=== PATIENT | female | born 1990 | race Caucasian/White ===

== ENCOUNTER 2017-12-07 16:53 | Emergency (ER) | payer OTHER ==
[2017-12-07 16:53] VITALS: BMI 19.5
[2017-12-07 17:03] VITALS: BP 104/72; PULSE 86; RESP 18; TEMP 98.3; O2SAT 98
--- NOTE | 2017-12-07 17:34 | ED PDOC ---
Lower Extremity Pain/Injury Time Seen by Provider: 12/07/17 17:07 Chief Complaint (Nursing): Lower Extremity Problem/Injury Chief Complaint (Provider): left foot and ankle injury History Per: Patient History/Exam Limitations: no limitations Onset/Duration Of Symptoms: Days (x1) Current Symptoms Are (Timing): Still Present Additional Complaint(s): 27 y/o female presents to the ED with a left foot and ankle pain s/p [place] [employer] [place]. Patient did not sustain head injury or loss of consciousness. She is having pain when trying to weight-bear. Patient took a muscle relaxer last night which did help the pain but she does not know the name of the medication. No medical attention sought yesterday after injury was sustained. PMD: none provided Past Medical History Reviewed: Historical Data, Nursing Documentation, Vital Signs Vital Signs: Last Vital Signs Temp 98.3 F 12/07/17 16:59 Pulse 86 12/07/17 16:59 Resp 18 12/07/17 16:59 BP 104/72 12/07/17 16:59 Pulse Ox 98 12/07/17 16:59 - Medical History PMH: No Chronic Diseases - Surgical History Surgical History: No Surg Hx - Family History Family History: States: No Known Family Hx - Living Arrangements Living Arrangements: With Family - Social History Current smoker - smoking cessation education provided: No Ex-Smoker (has not smoked in the last 12 months): No Alcohol: None Drugs: Denies - Home Medications Home Medications: Ambulatory Orders Medication Instructions Recorded Ibuprofen [Motrin Tab] 800 mg PO Q8 PRN #20 tab 12/07/17 - Allergies Allergies/Adverse Reactions: Allergies Allergy/AdvReac Type Severity Reaction Status Date / Time No Known Allergies Allergy Verified 12/07/17 16:59 Review of Systems ROS Statement: Except As Marked, All Systems Reviewed And Found Negative Musculoskeletal: Positive for: Foot Pain (left foot and ankle injury) Physical Exam - Reviewed Nursing Documentation Reviewed: Yes Vital Signs Reviewed: Yes - Physical Exam Appears: Positive for: Well, Non-toxic, No Acute Distress Skin: Positive for: Normal Color. Negative for: Rash Eye Exam: Positive for: Normal appearance Extremity: Positive for: Other (swelling and tenderness to the left lateral maleollus and dorsolateral aspect of left foot, normal distal sensation) Neurologic/Psych: Positive for: Alert, Oriented (x3) - Laboratory Results Urine POC: Negative - ECG O2 Sat by Pulse Oximetry: 98 (RA) Pulse Ox Interpretation: Normal - Other Rad Left foot and ankle x-ray X-Ray: Interpreted by Me, Viewed By Me X-Ray Interpretation: no fx, no dis Medical Decision Making Medical Decision Making: Time: 16:59 Impression: 27 y/o female with left foot and ankle injury Initial Plan: * Test * Motrin 600 mg PO * Left foot and ankle x-ray Patient aware of x-ray results, all questions answered. Patient was given crutches. Prescription for Motrin. See procedure note. Patient was referred to podiatry clinic for follow-up. Scribe Attestation: Documented by Jay Walter acting as a scribe Dottie Mcadams PA-C. Scribe Attestation: All medical record entries made by the Scribe were at my direction and personally dictated by me. I have reviewed the chart and agree that the record accurately reflects my personal performance of the history, physical exam, medical decision making, and the department course for this patient. I have also personally directed, reviewed, and agree with the discharge instructions and disposition. Procedures - Splinting Location: left foot Pre-Made Type: boris wrap, aircast Pre-Proc Neuro Vasc Exam: normal Post-Proc Neuro Vasc Exam: normal Disposition - Clinical Impression Clinical Impression: Ankle sprain - Patient ED Disposition Is Patient to be Admitted: No Counseled Patient/Family Regarding: Studies Performed, Diagnosis, Need For Followup, Rx Given - Disposition Referrals: Podiatry Clinic [Outside] Disposition: Routine/Home Disposition Time: 18:02 Condition: STABLE Additional Instructions: Ice, rest and elevate affected area. Take prescription meds as directed as needed for pain. Follow-up with podiatry clinic for any persistent symptoms. Prescriptions: Ibuprofen [Motrin Tab] 800 mg PO Q8 PRN #20 tab PRN Reason: Pain, Moderate (4-7) Instructions: Ankle Sprain (DC) Forms: [facility] (Urdu)
[2017-12-07] MEDS ORDERED: Povidone Iodine Topical 10% Sol ONE (17:42)
--- NOTE | 2017-12-07 17:59 | RAD ---
PROCEDURE: Left Ankle Radiographs. HISTORY: trauma COMPARISON: None FINDINGS: BONES: Bone alignment and mineralization are normal. There is no acute displaced fracture or bone destruction. JOINTS: Normal. Ankle mortise maintained. Talar dome intact SOFT TISSUES: Normal. OTHER FINDINGS: None. IMPRESSION: No acute fracture or dislocation.
--- NOTE | 2017-12-07 18:00 | RAD ---
PROCEDURE: Left Foot Radiographs. HISTORY: trauma COMPARISON: None. FINDINGS: BONES: Bone alignment and mineralization are normal. There is no acute displaced fracture or bone destruction. JOINTS: Normal. SOFT TISSUES: Normal. OTHER FINDINGS: None. IMPRESSION: No acute fracture or dislocation.
== END 2017-12-07 18:25 | disposition home or self-care (01) ==
LOC: H.ER 16:53
DX: S93.402A Sprain of unspecified ligament of left ankle, initial encounter (principal); X50.9XXA Other and unspecified overexertion or strenuous movements or postures, initial encounter; Y92.89 Other specified places as the place of occurrence of the external cause